=== PATIENT | female | born 1985 | race Caucasian/White ===

== ENCOUNTER 2020-10-03 16:30 | Outpatient (RCR) | payer MEDICAID, SELFPAY | END 2020-10-19 23:59 | LOC: DC 16:30 | PROVIDERS: PCP Internal Medicine; Visit Provider Obstetrics & Gynecology | DX: O24.410 Gestational diabetes mellitus in pregnancy, diet controlled (principal); Z3A.00 Weeks of gestation of pregnancy not specified | CPT/HCPCS: 97802; G0108 ==

== ENCOUNTER 2020-10-14 10:05 | Outpatient (CLI) | payer MEDICAID, SELFPAY ==
[2020-10-14] VITALS (9 sets, daily range): BP systolic 140–182; BP diastolic 72–96; PULSE 70–90; TEMP 36.1–37; O2SAT 100; BMI 54.2
[2020-10-14] MEDS: 0.9% Saline Lock 10 ML Syringe IV (10:45)
[2020-10-14 11:08] LABS: Hematocrit 34.4 % (37-47); Hemoglobin 11.2 g/dL (12.0-15.0); Mean Corp Hgb Conc 32.6 g/dL (32-36); Mean Corpuscular Hgb 27.4 pg (27.0-32.0); Mean Corpuscular Volume 84.1 fL (81-99); Mean Platelet Vol. 13.4 fl (6.2-12.0); Platelet Count 258 K/mm3 (150-450); RBC Distribution Width CV 14.8 % (11.6-14.6); RBC Distribution Width SD 45.3 fl (35.1-43.9); Red Blood Count 4.09 M/mm3 (4.2-5.4); White Blood Count 17.8 K/mm3 (4.4-11.0)
[2020-10-14 11:17] LABS: Prothrombin Time (Protime)PT. 12.9 SECONDS (11.7-14.9)
[2020-10-14 11:18] LABS: Fibrinogen 559 mg/dl (203-444)
[2020-10-14 11:20] LABS: AST(SGOT) 19 U/L (15-37); Alanine Aminotransfer ALT/SGPT 23 U/L (13-56); Creatinine, Serum 0.53 mg/dL (0.55-1.02); EST Glomerular Filtration Rate 139 mL/min (>60); Est Glom Filt Rate - Afr Amer 168 mL/min (>60); Estimated Creatinine Clearance 112.86 ml/min; Uric Acid 4.4 mg/dL (2.6-6.0)
[2020-10-14 11:28] LABS: Amphetamine Urine VISTA POSITIVE (<1000 ng/mL); Barbiturate Urine VISTA NEGATIVE (< 200 ng/mL); Benzodiazepine Urine VISTA NEGATIVE (< 200 ng/mL); Cocaine Urine VISTA NEGATIVE (< 300 ng/mL); Ecstacy Urine VISTA NEGATIVE (< 500 ng/mL); Methadone Urine VISTA NEGATIVE (< 300 ng/mL); PCP Urine VISTA NEGATIVE (< 25 ng/mL); THC Urine VISTA NEGATIVE (< 50 ng/mL); Vista UDS pH Range 6
[2020-10-14 11:29] LABS: Protein, Urine (Random) 59.4 mg/dL (<11.9); Protein:Creat Ratio 339 mg/g CRE (0-200)
[2020-10-14 11:35] LABS: Mucous, Urine 0 SEEN /hpf (<or=2+)
[2020-10-14 11:36] LABS: Bedside Glucose 75 mg/dL (70-110)
[2020-10-14 11:37] LABS: Color, Urine Yellow (Yellow); Glucose, Dipstick Normal (Normal); Ketone-Dipstick Negative (Negative); Leukocyte Esterase-Dipstick 25 /ul (Negative); Nitrite-Dipstick Negative (Negative); Occult Blood-Urine 250 /ul (Negative); Protein-Dipstick 30 mg/dl (Negative); Urine Bilirubin Dipstick Negative (Negative); Urine Clarity Sl. Cloudy (Clear); Urine Urobilinogen Normal (Normal)
[2020-10-14 11:43] LABS: Bacteria 2+ /hpf (None Seen); Red Blood Cells-Urine 25-50 SEEN /hpf (0-5); Squamous Epithelial Cells - UA 0-5 SEEN /hpf (5-10); White Blood Cells 0-5 SEEN /hpf (0-5)
[2020-10-14] MEDS: Lactated Ringers 1,000 ML 999 ML IV (11:53)
[2020-10-14] MEDS: Morphine 4 MG/ML Syringe IV (12:08)
[2020-10-14] MEDS: Betamethasone/Betamethasone 30 MG/5 ML Vial 12 MG IM (12:13)
[2020-10-14 12:39] LABS: Syphilis Antibodies Non-reactive
[2020-10-14 15:51] LABS: Bedside Glucose 87 mg/dL (70-110)
--- NOTE | 2020-10-14 19:10 | OB.TRI.NOTE ---
HPI - General HPI Narrative ROBERT JAMISON, 35-year-old 4 para 1-0-1-2 1 at 34-5/7 weeks presents to labor and delivery for evaluation for threatened labor and elevated blood pressure. Patient denied any of gross vaginal bleeding but did have some brown-tinged mucus. She is had good movement. Contractions started this morning and got progressively worse. She was seen in the office today. She had an ultrasound and was evaluated and sent to labor and delivery for further evaluation. She has not been checking her blood sugars regularly. is complicated to date by gestational diabetes, maternal obesity with BMI of 54. She denies any headache, visual disturbances or epigastric pain. Maternal Data Information Final TAMIA: 11/20/20 Gestational age: 34 5/7 PFSH PFS Home Medications NK 10/14/20 [History Last Taken Unknown] Allergy/AdvReac Type Severity Reaction Status Date / Time No Known Allergies Allergy Verified 10/14/20 11:30 Social History Smoking Status: Former smoker ROS Constitutional Constitutional: Denies fatigue, fever(s) or malaise Eyes Eyes: Denies change in vision ENT HEENT: Denies dizziness or headache(s) Cardiovascular Cardiovascular: Denies chest pain, dyspnea or lightheadedness Respiratory/Chest Respiratory/Chest: Denies cough or dyspnea Gastrointestinal Gastrointestinal: Denies change in bowel habits Genitourinary Genitourinary: Denies burning urination or genital lesions Integumentary Integumentary: Denies rash Neurologic Neurologic: Denies confusion, dizziness, headache(s), numbness or weakness Physical Exam Narrative +DTRs, no clonus abd- soft, nontender, gravid, large for gest age, large pannus Const alert and no apparent distress Constitutional Narrative: appears uncomfortable, breathing through contractions Extremity General Extremity: edema bilateral lower extremity Details: mild NST FHR Rate Baby B Baseline: 135 Variability:: Moderate Accelerations:: 15 x 15 Decelerations:: Variable (occasional) NST Reactive:: Yes FHR Category:: Category I (for > 20 min before discharge) Uterine Activity:: q4-7 min Assessment & Plan (1) High risk multigravida in third trimester: (2) 34 weeks gestation of : (3) Previous delivery affecting : (4) Threatened labor, antepartum: PLAN: Patient was observed on labor and delivery for several hours. No active cervical change. Abruption labs were normal. Patient was given betamethasone x1 in case of premature delivery. Patient's pain with the contractions decreased significantly. She desired discharge home. She was deemed clinically stable for this. Return tomorrow for reevaluation and second dose of betamethasone. Return if contractions increase, vaginal bleeding or other concerns. (5) Maternal obesity syndrome in third trimester: (6) BMI 50.0-59.9, adult: (7) Gestational hypertension: COMMENT: New onset gestational hypertension, possible preeclampsia. Urine PC creatinine ratio was elevated however, patient was having a little bit of brown-tinged vaginal discharge which may have affected this. We will follow patient closely. No evidence of preeclampsia with severe features. Will monitor for this on an outpatient basis for now.
[2020-10-22 20:08] LABS: Amphetamine Positive (.); AmphetamineGC/MS Conf 698 ng/mL (Cutoff=500); Methamphetamines Positive (.)
[2020-10-23 12:18] LABS: Amphetamine Ur Confirm Positive (.)
--- NOTE | 2020-12-02 13:51 | CASEMGMT ---
Social Work Labor and Delivery This report writer noted urine confirmation drug screen results are back and positive for both amphetamines and methamphetamines. This write worked with patient during delivery stay and a children services referral was made at that time. Case opened for investigation and Gabby Goodwin is the vault worker. Called Gabby today and left message to call this report writer back. For further details of social work interactions refer to delivery record, [id number]. -SHAILA Corea, BARREL LOADER
== END 2020-10-14 15:55 | disposition home or self-care (01) ==
LOC: WPOUT 10:11 → WP 10:12
PROVIDERS: PCP Internal Medicine; Visit Provider Obstetrics & Gynecology
DX: O47.03 False labor before 37 completed weeks of gestation, third trimester (principal); O34.212 Maternal care for vertical scar from previous cesarean delivery; O13.3 Gestational [pregnancy-induced] hypertension without significant proteinuria, third trimester; O99.213 Obesity complicating pregnancy, third trimester; E66.9 Obesity, unspecified; Z3A.34 34 weeks gestation of pregnancy; Z87.891 Personal history of nicotine dependence
CPT/HCPCS: 36415; 59025; 59050; 80307; 81001; 82565; 82570; 82962; 84156; 84450; 84460; 84550; 85027; 85384; 85610; 85730; 86780; 86850; 86900; 86901; 87086; 99218; J7120; A4216; G0378; J0702

== ENCOUNTER 2020-10-15 18:20 | Inpatient (IN) | payer MEDICAID, SELFPAY ==
[2020-10-14 10:45] VITALS: BMI 54.2
[2020-10-15] VITALS (37 sets, daily range): BP systolic 127–176; BP diastolic 68–93; PULSE 72–105; RESP 16–20; TEMP 36.3–36.9; O2SAT 96–100; BMI 55.7
[2020-10-15] MEDS: 0.9 % NaCl (Sterile) Posiflush 10 mL IV (14:50)
[2020-10-15 15:14] LABS: Absolute Lymphocyte Count 2.89 X10^3/uL (0.83-4.51); Absolute Neutrophil Count 14.5 X10^3/uL (2.0-7.7); Basophil# 0.03 X10^3/uL; Basophil% 0.2 % (0-1); Eosinophil# 0.04 X10^3/uL; Eosinophils% 0.2 % (0-5); Hematocrit 32.2 % (37-47); Hemoglobin 10.3 g/dL (12.0-15.0); Lymphocyte # 2.89 X10^3/ul (0.83-4.51); Lymphocyte % 15.4 % (19-41); Mean Corpuscular Volume 84.5 fL (81-99); Mean Platelet Vol. 13.4 fl (6.2-12.0); Monocyte# 1.02 X10^3/uL; Monocyte% 5.4 % (0-10); NRBC Flagged by Analyzer 0.2 % (0-5); Neutrophil # 14.47 X10^3/uL (2.7-7.7); Neutrophil % 77.3 % (47-70); Platelet Count 280 K/mm3 (150-450); RBC Distribution Width CV 15.1 % (11.6-14.6); RBC Distribution Width SD 46.2 fl (35.1-43.9); Red Blood Count 3.81 M/mm3 (4.2-5.4); White Blood Count 18.7 K/mm3 (4.4-11.0)
[2020-10-15 15:22] LABS: Protein, Urine (Random) 78.3 mg/dL (<11.9); Protein:Creat Ratio 593 mg/g CRE (0-200)
[2020-10-15 15:25] LABS: AST(SGOT) 16 U/L (15-37); Alanine Aminotransfer ALT/SGPT 23 U/L (13-56); Creatinine, Serum 0.55 mg/dL (0.55-1.02); EST Glomerular Filtration Rate 136 mL/min (>60); Est Glom Filt Rate - Afr Amer 164 mL/min (>60); Estimated Creatinine Clearance 108.76 ml/min; Uric Acid 3.9 mg/dL (2.6-6.0)
--- NOTE | 2020-10-15 15:32 | US_ITS ---
STUDY: SECOND AND THIRD TRIMESTER OBSTETRICAL ULTRASOUND - LIMITED REASON FOR EXAM: Female, 35 years old. Vaginal bleeding. LMP: Unknown. PRIOR ULTRASOUND: None. TECHNIQUE: Transabdominal TECHNICAL QUALITY: Adequate. FINDINGS: There is a single intrauterine fetus. The fetus is in a cephalic presentation. There is demonstrated cardiac activity with a heart rate of 141 bpm. There is a normal amniotic fluid volume. The largest amniotic fluid pocket measures 8.69 cm. The amniotic fluid index (NGUYỄN) is 16.2 cm. The placenta is anterior in location and is not low lying. There are Grade 2 placental changes. The cervix is obscured Age by LMP: 34 weeks, 6 days. TAMIA by LMP: 11/20/2020. US/OB Limited (No Biometrics) IMPRESSION: 1. Live single intrauterine in a vertex presentation. 2. heart rate of 141 bpm. 3. NGUYỄN of 16.2 cm. 4. Anterior grade 2 placenta. There is no evidence of abruption. 5. Unable to visualize the cervix. Electronically Signed: Jermaine Mckeon DO at 16:52 EDT Tel [phone], Service support ,
[2020-10-15] MEDS: Mag Hydrox/Al Hydrox/Simeth 30 ML UDC PO (15:38)
[2020-10-15 15:45] LABS: Prothrombin Time (Protime)PT. 12.9 SECONDS (11.7-14.9)
[2020-10-15 15:46] LABS: Fibrinogen 499 mg/dl (203-444)
[2020-10-15] MEDS: Magnesium Sulfate 4gm/100mL 4 GM/100 ML IV.SOLN. IV (18:54)
[2020-10-15] MEDS: Lactated Ringers 1,000 ML 999 ML IV (18:54)
[2020-10-15] MEDS: Acetaminophen 500 MG Tablet 1000 MG PO (19:18)
[2020-10-15] MEDS: Magnesium Sulfate 20 GM/500 ML BAG IV (19:19)
--- NOTE | 2020-10-15 19:42 | PCM.HP.OB ---
HPI - General General Date of Admission: 10/15/20 HPI Narrative ROBERT JAMISON, is a 35 F who presents with vaginal bleeding and elevated BP. Maternal Data Information Final TAMIA: 11/20/20 Gestational age: 34&6 PFSH PFSH Medical History (Updated 10/15/20 @ 20:05 by Sydnie Ventura) Anxiety Depression Gestational diabetes History of pre-term labor Pre-eclampsia Smoker Thyroid goiter Umbilical cord, marginal insertion Home Medications NK 10/14/20 [History Last Taken Unknown] Allergy/AdvReac Type Severity Reaction Status Date / Time No Known Allergies Allergy Verified 10/14/20 11:30 Surgical History (Updated 10/15/20 @ 20:02 by Sydnie Ventura) History of surgery Previous section Social History Smoking Status: Former smoker Vital Signs Vital Signs Vital Signs: 10/15/20 14:36 10/15/20 14:52 10/15/20 15:07 Pulse Rate 88 83 87 Blood Pressure 161/88 H 152/79 H 154/82 H BP Systolic 161 152 154 BP Diastolic 88 79 82 Pulse Ox 10/15/20 15:22 10/15/20 15:46 10/15/20 15:54 Pulse Rate 83 87 93 Blood Pressure 145/69 H 176/81 H 143/78 H BP Systolic 145 176 143 BP Diastolic 69 81 78 Pulse Ox 10/15/20 16:07 10/15/20 16:37 10/15/20 16:52 Pulse Rate 80 72 81 Blood Pressure 151/82 H 141/89 H 146/93 H BP Systolic 151 141 146 BP Diastolic 82 89 93 Pulse Ox 10/15/20 17:07 10/15/20 17:22 10/15/20 17:37 Pulse Rate 86 80 79 Blood Pressure 168/81 H 135/77 H 130/80 H BP Systolic 168 135 130 BP Diastolic 81 77 80 Pulse Ox 10/15/20 17:53 10/15/20 18:52 10/15/20 18:57 Pulse Rate 82 84 81 Blood Pressure 137/81 H BP Systolic 137 BP Diastolic 81 Pulse Ox 98 99 10/15/20 19:02 10/15/20 19:07 10/15/20 19:12 Pulse Rate 89 88 97 Blood Pressure 141/80 H BP Systolic 141 BP Diastolic 80 Pulse Ox 99 98 98 10/15/20 19:17 10/15/20 19:22 10/15/20 19:27 Pulse Rate 91 94 97 Blood Pressure 158/83 H BP Systolic 158 BP Diastolic 83 Pulse Ox 98 99 98 10/15/20 19:39 Pulse Rate 87 Blood Pressure BP Systolic BP Diastolic Pulse Ox 100 Weight Weight: 294 lb 15.656 oz Body Mass Index (BMI) 55.7 Physical Exam Const alert and oriented x3 Chest inspection of chest normal Resp normal respiratory effort GI soft to palpation and non-tender Inspection: gravid external exam normal Labs Labs Labs: Blood Type A POSITIVE Antibody Screen NEGATIVE Hct 32.2 % (37-47) L Hgb 10.3 g/dL (12.0-15.0) L Obstetrics US Syphilis Total Ab Non-reactive See [facility] H&P Assessment & Plan (1) Previous delivery affecting : COMMENT: PLAN: MOD - proceed with repeat section. Patient counseled on R/B/A & informed consent signed. (2) Pre-eclampsia, severe: QUALIFIERS: Trimester: third trimester Qualified Code(s): O14.13 - Severe pre-eclampsia, third trimester PLAN: BP's severe range thus patient with severe preE. Start magnesium sulfate and will proceed with delivery. Plan of care discussed with patient in detail & all questions answered. (3) Request for sterilization: PLAN: Patient wishes to proceed with bilateral salpingectomy. Reviewed R/B/A including risks of regret & failure. Informed consent signed. (4) Vaginal bleeding during : PLAN: Patient with significant vaginal bleeding in office today. Suspect placental abruption.
[2020-10-15] MEDS: Sodium Citrate/Citric Acid 30 ML UDC PO (19:54)
[2020-10-15 19:56] LABS: Bedside Glucose 109 mg/dL (70-110)
--- NOTE | 2020-10-15 20:02 | NURSING ---
Anesthesia managing magnesium in OR, see OR vital signs and charting from 2001 until 2149.
--- NOTE | 2020-10-15 20:30 | FALS_PTH ---
PATIENT: ROBERT JAMISON LOC: [facility] U#:[id number] AGE/SX: 35/F ROOM: WP012 RE10/15/[address]: Dr. Jake Funes MD : 1985 BED: 1 DIS: 10/21/2020 SPEC #: [id number] RECD: 10/15/20 23:09 STATUS: ELIZABETH REMarisa #: [id number] MELITON: 10/15/20 20:[address]: Jake Funes DEPT: SURGICAL PATHOLOGY RECD BY: Steff Sequeira ENTERED: 10/16/20 08:42 SP TYPE: FALL TUBES OTHR DR: Dr. Huyen Black DO Tissues: Fallopian tube Procedures: Surgery Specimen Level II HEADER OPERATION: Tubal ligation PRE-OP DIAGNOSIS: Sterilization TISSUE SUBMITTED: Fallopian tubes, right tube is tagged MICROSCOPIC DIAGNOSIS Right fallopian tube, salpingectomy: Complete cross-section of fallopian tube with no pathologic change. Left fallopian tube, salpingectomy: Complete cross-section of fallopian tube with no pathologic change. AM:felipa 10/17/2020 MICROSCOPIC DESCRIPTION Slides are reviewed. GROSS DESCRIPTION Received in fixative is one container labeled with the patient's name and designated bilateral fallopian tubes, right tube tagged. The specimen consists of bilateral fallopian tubes including fimbrial ends. The right fallopian tube measures 8.5 cm in length and up to 0.8 cm in diameter and the left fallopian tube measures 9 cm in length and 0.8 cm in diameter. Sections of the right fallopian tube reveal focal congested and hemorrhagic surfaces close to fimbrial end. Election Watcher sections are submitted in two as follows: 1 ? right fallopian tube, 2 ? left fallopian tube. / SJ:felipa 10/16/20 TC:4 CPT: 22647 x2
--- NOTE | 2020-10-15 21:46 | EX.PCM.OBRPT ---
Maternal Data Information Final TAMIA: 11/20/20 Details Operative Information Date of Procedure: 10/15/20 Pre-Operative Diagnosis: (1) Severe preeclampsia (2) Suspected placenta abruption (3) Prior section (4) Sterilization request Post-Operative Diagnosis: Same Indications for : Repeat Elective and Suspected Abruptio Placenta Indications Narrative: The patient was taken to the operating room where spinal anesthesia was placed & found to be adequate. She was prepped and draped in the dorsal supine position with a leftward tilt. A Pfannenstiel skin incision was made approximately 2 cm above the symphysis pubis and carried through to the underlying fascia with the scalpel. The fascia was incised incised in the midline and extended laterally with the Everett scissors. The rectus muscles were in the midline and the peritoneum was entered carefully and bluntly. Adhesions involving the bladder peritoneum & uterus were gently taken down. The peritoneal incision was stretched and the bladder blade was inserted. Vesicouterine peritoneum was tented up, incised & then bladder flap created gently. The uterine incision was made in a low transverse fashion with the scalpel and extended superiorly and inferiorly with blunt dissection. The 's head was brought to the incision in the flexed position and delivered without difficulty. The head was gently guided to allow delivery of the anterior and posterior shoulders. The body then delivered with fundal pressure in the standard fashion. The 3VC cord was clamped and cut in delayed fashion. The infant was handed off to the waiting tower climber. The placenta spontaneously delivered. The uterus was exteriorized and cleared of clots and debris. The uterine incision was closed with (2) #1 Vicryl suture in a running locked fashion from each side. Monocryl suture was used in an imbricating fashion. The incision was examined and was found to be hemostatic. Attention was turned to the fallopian tubes. Adhesions were gently taken down using the bovie cautery so the right fallopian tube could be accessed. The right fallopian tube was grasped, cauterized and cut using the Ligasure. Excellent hemostasis was confirmed. The left fallopian tubes was grasped, cauterized and cut using the Ligasure. Excellent hemostasis was confirmed. The uterus was gently returned to the abdominal cavity. After irrigating Eamon was placed over the uterine incision as some areas were denuded (but hemostatic). The peritoneum was reapproximated superiorly for 3cm then aborted because of some adhesions. The rectus muscle was examined and any bleeding was Bovie cauterized. The fascia was closed with PDS suture in a running standard fashion (using a fish retractor). The subcutaneous tissue was examining and any bleeding was Bovie cauterized. The subcutaneous tissue was reapproximated with interrupted sutures. The skin was closed in a subcuticular fashion by the MACHINE STRAP BUCKLER while I was present in the labor & delivery unit. The remainder of the procedure was performed by me with assistance. All sponge, lap, and needle counts were correct. The patient was taken to her room for recovery in a stable condition. Classification: YOVANY Procedure Type: low transverse driveway attendant #1: Papo Vilchis Type of Anesthesia: Spinal Antibiotic Given: Ancef 3 grams IV x1 Drain: Cummings to straight drain Estimated Blood Loss: 800ml Fluids Replaced: 1000ml Procedure Start Time: 20:23 Procedure Stop Time: 21:43 Findings Description of Procedure: Normal maternal uterus and adnexa; some adhesions involving the adnexa & uterus, also adhesions involving the uterus & bladder peritoneum Presentation: Positive for Vertex Amniotic Membrane Rupture Type: Artificial Amniotic Fluid Description: Bloody Placental Delivery Description: Spontaneous Placenta Disposition: [facility] Cord Vessel Description: 3 Vessels Cord Entanglement: None Cord Gases: ABG and VBG Infant A Gender: Male (Joe, weight = 2400g) (1 minute): 8 (5 minute): 8 Delayed Cord Clamping: Yes Complications Complications: None
--- NOTE | 2020-10-15 22:00 | NURSING ---
See PACU scoring-WP for vital signs.
[2020-10-15] MEDS: Ketorolac 30 MG/ML Syringe IV (22:19)
[2020-10-15] MEDS: Oxytocin 30 units/NS 500 ml 30 UNITS/500 ML IV.SOLN 167 UNITS IV (22:20)
[2020-10-15] MEDS: 0.9% Saline Lock 10 ML Syringe IV (22:20)
--- NOTE | 2020-10-15 23:00 | NURSING ---
See PCU scoring-WP for VS.
[2020-10-15 23:08] LABS: Pathology Specimen OB SEE PATHOLOGY REPORT
--- NOTE | 2020-10-15 23:50 | NURSING ---
Discussed plan for feeding with pt. Educated on pumping to stimulate milk production if pt wishes to breastfeed. Pt states I don't even want to sit up right now and denies desire to pump. This RN instructed pt to let staff know if she wishes to start pumping. Pt verbalizes understanding.
[2020-10-16] VITALS (41 sets, daily range): BP systolic 103–155; BP diastolic 55–73; PULSE 77–107; RESP 16–20; TEMP 36.4–37.3; O2SAT 95–100
--- NOTE | 2020-10-16 | NURSING ---
Seizure pads placed on pt bed.
[2020-10-16 00:01] LABS: Bedside Glucose 135 mg/dL (70-110)
[2020-10-16] MEDS: HYDROmorphone 1 MG/ML Syringe IV ×2 (00:01→13:01)
[2020-10-16] MEDS: 0.9% Saline Lock 10 ML Syringe IV ×2 (00:01→04:24)
[2020-10-16] MEDS: Acetaminophen 500 MG Tablet 1000 MG PO ×4 (01:38→18:56)
[2020-10-16] MEDS: Lactated Ringers 1,000 ML 50 ML IV (01:39)
[2020-10-16] MEDS: Ketorolac 30 MG/ML Syringe IV ×3 (04:24→16:23)
[2020-10-16] MEDS: Magnesium Sulfate 20 GM/500 ML BAG IV ×2 (05:22→14:37)
[2020-10-16 05:40] LABS: Hematocrit 30.1 % (37-47); Hemoglobin 9.5 g/dL (12.0-15.0); Mean Corp Hgb Conc 31.6 g/dL (32-36); Mean Corpuscular Hgb 27.3 pg (27.0-32.0); Mean Corpuscular Volume 86.5 fL (81-99); Mean Platelet Vol. 13.5 fl (6.2-12.0); Platelet Count 298 K/mm3 (150-450); RBC Distribution Width CV 15.6 % (11.6-14.6); RBC Distribution Width SD 48.7 fl (35.1-43.9); Red Blood Count 3.48 M/mm3 (4.2-5.4); White Blood Count 26.2 K/mm3 (4.4-11.0)
[2020-10-16 06:30] LABS: Bedside Glucose 105 mg/dL (70-110)
--- NOTE | 2020-10-16 08:20 | NURSING ---
Dr. Francisco reviewed vital signs and lab work. Continue current plan of care. Monitor for signs of infection due to increased WBC count .
--- NOTE | 2020-10-16 08:29 | NURSING ---
Per Dr. Francisco, turn down Lactated Ringer's so that patient can take more fluid PO. LR now running at 20 mL/hr and patient notified that she can now drink 80 mL/hour of fluid. Informed patient that this RN will help measure out 80 mL/hour for patient to drink. Patient verbalizes understanding .
[2020-10-16] MEDS: Enoxaparin 40 MG/0.4 ML Syringe SC ×2 (08:31→22:57)
--- NOTE | 2020-10-16 12:40 | NURSING ---
Dr. Francisco notified of patient's most recent blood pressures and that patient reports a severe headache, along with feeling very drowsy. Patient is arousable. Patient is alert once she wakes up from sleep. Dr. Francisco also notified that patient's reflexes went from normal to diminished. Plan is to obtain a Magnesium level now and a CBC and CMP in the morning. Dr. Francisco also aware of patient's output.
[2020-10-16] MEDS: Senna/Docusate Sodium 1 Tablet PO (13:07)
[2020-10-16 13:21] LABS: Magnesium 5.3 mg/dL (1.6-2.6)
--- NOTE | 2020-10-16 13:40 | NURSING ---
Call placed to [facility] Nurse Rajni to relay message to Dr. Francisco that magnesium level is 5.3
--- NOTE | 2020-10-16 14:28 | PN.OBGYN_ITS ---
Subjective Subjective Pt doing well. No vision changes, upper abd pain. Pain controlled. Has a headache. Tolerating PO. Gallardo in place. No N/V. Objective Data Objective Data Vital Signs: Vital Signs Temp Pulse Resp BP Pulse Ox 98.4 F 102 H 16 120/60 96 10/16/20 13:30 10/16/20 13:34 10/16/20 13:30 10/16/20 13:34 10/16/20 13:30 Oxygen Delivery Method Room Air Weight: 294 lb 15.656 oz Body Mass Index (BMI) 55.7 Intake & Output: Intake and Output for Last 24 Hours 10/14/20 10/15/20 10/16/20 23:59 23:59 23:59 Intake Total 1265 / 1265 1940.83 / 1940.83 Output Total 350 / 450 930 / 930 Balance 915 / 815 1010.83 / 1010.83 Lab / Micro Data Result Diagrams: 10/16/20 05:30 10/15/20 14:50 Labs: Laboratory Results - last 24 hr 10/15/20 14:50: U Random Total Protein 78.3 H, Urine Creatinine 132.00, Protein/Creatinin Ratio 593 H 10/15/20 14:50: Creatinine 0.55, Estim Creat Clear Calc 108.76, Est GFR (MDRD) Af Amer 164, Est GFR (MDRD) Non-Af 136, Uric Acid 3.9, AST 16, ALT 23 10/15/20 14:50: WBC 18.7 H, RBC 3.81 L, Hgb 10.3 L, Hct 32.2 L, MCV 84.5, MCH 27.0, MCHC 32.0, RDW Std Deviation 46.2 H, RDW Coeff of Belkis 15.1 H, Plt Count 280, MPV 13.4 H, Immature Gran % (Auto) 1.500 H, Neut % (Auto) 77.3 H, Lymph % (Auto) 15.4 L, Pennington % (Auto) 5.4, Eos % (Auto) 0.2, Baso % (Auto) 0.2, Absolute Neuts (auto) 14.5 H, Absolute Lymphs (auto) 2.89, Nucleated RBC % 0.2 10/15/20 14:50: PT 12.9, INR 1.0, APTT 25.0, Fibrinogen 499 H 10/15/20 19:40: POC Glucose 109 10/15/20 23:37: POC Glucose 135 H 10/16/20 05:30: WBC 26.2 H, RBC 3.48 L, Hgb 9.5 L, Hct 30.1 L, MCV 86.5, MCH 27.3, MCHC 31.6 L, RDW Std Deviation 48.7 H, RDW Coeff of Belkis 15.6 H, Plt Count 298, MPV 13.5 H 10/16/20 06:15: POC Glucose 105 10/16/20 12:55: Magnesium 5.3 H* Micro: Microbiology 10/15/20 18:20 Mucosa - Nose SARS-CoV-2 Antigen (Rapid) - Final Radiography Diagnostic Testing: Radiology Impression Obstetrics Ultrasound 10/15/20 15:32 IMPRESSION: 1. Live single intrauterine in a vertex presentation. 2. heart rate of 141 bpm. 3. NGUYỄN of 16.2 cm. 4. Anterior grade 2 placenta. There is no evidence of abruption. 5. Unable to visualize the cervix. Electronically Signed: Jermaine Mckeon DO at 16:52 EDT Tel [phone], Service support , Assessment & Plan (1) Pre-eclampsia, severe: QUALIFIERS: Trimester: third trimester Qualified Code(s): O14.13 - Severe pre-eclampsia, third trimester PLAN: BP's are WNL. Has a LANGSTON this morning. Labs reviewed. UOP adequate. Cont mag gtt for 24 hrs . Keep gallardo in place until mag gtt off. Repeat pre e labs in AM. Pain controlled. Cont reg diet. (2) BMI 50.0-59.9, adult: (3) S/P section:
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
--- NOTE | 2020-10-16 17:22 | NURSING ---
Patient has requested that nursing staff give report on the patient's history outside of the room as her significant other does not know some of her social history that she would like to keep private for now.
--- NOTE | 2020-10-16 17:49 | NURSING ---
Per Dr. Francisco, stop Magnesium at 2030 tonight. Once Magnesium is discontinued, patient can maintain regular diet and come off of fluid restrictions. No further blood pressure medications ordered. Call provider with any blood pressure issues overnight.
[2020-10-16] MEDS: oxyCODONE 5 MG Tablet PO (20:02)
[2020-10-16] MEDS: Ibuprofen 600 MG Tablet PO (22:58)
[2020-10-17] VITALS (10 sets, daily range): BP systolic 132–146; BP diastolic 63–71; PULSE 82–100; RESP 18–20; TEMP 36.7–36.8; O2SAT 98–99
[2020-10-17] MEDS: Acetaminophen 500 MG Tablet 1000 MG PO ×4 (01:44→21:40)
[2020-10-17] MEDS: oxyCODONE 5 MG Tablet PO ×4 (03:48→21:55)
[2020-10-17] MEDS: Ibuprofen 600 MG Tablet PO ×3 (05:43→18:43)
[2020-10-17 06:14] LABS: Absolute Lymphocyte Count 4.36 X10^3/uL (0.83-4.51); Basophil# 0.06 X10^3/uL; Basophil% 0.3 % (0-1); Eosinophil# 0.13 X10^3/uL; Eosinophils% 0.7 % (0-5); Hematocrit 26.9 % (37-47); Hemoglobin 8.1 g/dL (12.0-15.0); Lymphocyte # 4.36 X10^3/ul (0.83-4.51); Lymphocyte % 25.1 % (19-41); Mean Corp Hgb Conc 30.1 g/dL (32-36); Mean Corpuscular Hgb 26.6 pg (27.0-32.0); Mean Corpuscular Volume 88.2 fL (81-99); Monocyte# 1.38 X10^3/uL; Monocyte% 7.9 % (0-10); NRBC Flagged by Analyzer 0.2 % (0-5); Neutrophil # 10.97 X10^3/uL (2.7-7.7); Neutrophil % 63.3 % (47-70); Platelet Count 288 K/mm3 (150-450); RBC Distribution Width CV 15.9 % (11.6-14.6); RBC Distribution Width SD 50.4 fl (35.1-43.9); Red Blood Count 3.05 M/mm3 (4.2-5.4); White Blood Count 17.4 K/mm3 (4.4-11.0)
[2020-10-17 06:49] LABS: ALB/GLOB Ratio 0.5 RATIO (0.9-2.4); AST(SGOT) 18 U/L (15-37); Alanine Aminotransfer ALT/SGPT 17 U/L (13-56); Albumin, Serum 1.7 g/dL (3.2-5.0); Alkaline Phosphatase 111 U/L (45-117); Anion Gap 5 (5-15); BUN 18 mg/dL (7-18); BUN/Creat Ratio 22.6 RATIO (10-20); Calcium,Total 7.5 mg/dL (8.5-10.1); Chloride 110 mmol/L (98-107); EST Glomerular Filtration Rate 88 mL/min (>60); Est Glom Filt Rate - Afr Amer 106 mL/min (>60); Estimated Creatinine Clearance 74.77 ml/min; Globulin 3.6 g/dL (2.2-4.2); Glucose 142 mg/dL (74-106); Potassium 3.9 mmol/L (3.5-5.1); Protein, Total 5.3 g/dL (6.4-8.2); Sodium Level 140 mmol/L (136-145)
[2020-10-17] MEDS: Senna/Docusate Sodium 1 Tablet PO (07:47)
--- NOTE | 2020-10-17 08:23 | PCM.PN.OB ---
Subjective Subjective Pain well, average lochia. Denies headache or visual disturbances. Feels bloated. No nausea. Tolerating regular diet. Ambulating without difficulty. Denies lightheadedness, shortness of breath or chest pain. Objective Data Objective Data Vital Signs: Vital Signs Temp Pulse Resp BP Pulse Ox 98.3 F 82 18 132/66 H 99 10/17/20 03:50 10/17/20 07:51 10/17/20 03:50 10/17/20 07:51 10/17/20 03:53 Oxygen Delivery Method Room Air Weight: 133.8 kg Body Mass Index (BMI) 55.7 Intake & Output: Intake and Output for Last 24 Hours 10/15/20 10/16/20 10/17/20 23:59 23:59 23:59 Intake Total 1265 / 1265 3307.33 / 3307.33 Output Total 350 / 450 1580 / 1580 200 / 200 Balance 915 / 815 1727.33 / 1727.33 -200 / -200 Lab / Micro Data Result Diagrams: 10/17/20 06:05 10/17/20 06:05 Labs: Laboratory Results - last 24 hr 10/16/20 12:55: Magnesium 5.3 H* 10/17/20 06:05: WBC 17.4 H, RBC 3.05 L, Hgb 8.1 L, Hct 26.9 L, MCV 88.2, MCH 26.6 L, MCHC 30.1 L, RDW Std Deviation 50.4 H, RDW Coeff of Belkis 15.9 H, Plt Count 288, MPV 13.0 H, Immature Gran % (Auto) 2.700 H, Neut % (Auto) 63.3, Lymph % (Auto) 25.1, [place] % (Auto) 7.9, Eos % (Auto) 0.7, Baso % (Auto) 0.3, Absolute Neuts (auto) 11.0 H, Absolute Lymphs (auto) 4.36, Nucleated RBC % 0.2 10/17/20 06:05: Sodium 140, Potassium 3.9, Chloride 110 H, Carbon Dioxide 25.0, Anion Gap 5, BUN 18, Creatinine 0.80, Estim Creat Clear Calc 74.77, Est GFR (MDRD) Af Amer 106, Est GFR (MDRD) Non-Af 88, BUN/Creatinine Ratio 22.6 H, Glucose 142 H, Calcium 7.5 L, Total Bilirubin 0.10 L, AST 18, ALT 17, Alkaline Phosphatase 111, Total Protein 5.3 L, Albumin 1.7 L, Globulin 3.6, Albumin/Globulin Ratio 0.5 L Micro: Microbiology 10/15/20 18:20 Mucosa - Nose SARS-CoV-2 Antigen (Rapid) - Final Physical Exam Narrative 1+ DTRs, no clonus, 3+ pedal and lower extremity edema. Const alert General Appearance: cooperative GI GI Narrative: soft, moderate distention, fundus firm, moderately tender. Abdominal bandage clean dry and intact. No rebound or guarding. Pannus is large. Assessment & Plan (1) S/P section: PLAN: Doing well from a postop status. is in the special care nursery. Patient is working on pumping breastmilk and trying to latch baby for breast-feeding. (2) Pre-eclampsia, severe: QUALIFIERS: Trimester: third trimester Qualified Code(s): O14.13 - Severe pre-eclampsia, third trimester PLAN: Is are stable. Not on any maintenance medications at this time. Continue monitor blood pressures. (3) Postoperative anemia due to acute blood loss: PLAN: Calculated EBL is 1300. This is consistent with postoperative, hemorrhage. Will give 1 dose of IV iron. Patient's anemia is asymptomatic at this time. (4) hemorrhage:
[2020-10-17] MEDS: DiphenhydrAMINE 50 MG/ML Syringe 25 MG IV (09:56)
[2020-10-17] MEDS: 0.9% Saline Lock 10 ML Syringe IV ×2 (09:56→10:56)
[2020-10-17] MEDS: Enoxaparin 40 MG/0.4 ML Syringe SC ×2 (09:56→21:41)
--- NOTE | 2020-10-17 10:53 | CASEMGMT ---
Social Work Labor and Delivery Unit Call to [facility]. Spoke with Gabby in the intake department, , extension [phone]. Referral due to substance exposed in utero. Brief maternal and histories provided, including additional risk factors/concerns of maternal mental health not currently treated, limited support, process of divorce, premature delivery and baby now in SCN. Asked Gabby to call this typewriter ribbon winder back as to whether referral to be screened in, as this typewriter ribbon winder wants to be able to update MOB on children services intentions. This typewriter ribbon winder would like to be able to offer MOB additional opportunity to speak to the father of baby about this matter, before children services would arrive to meet with MOB. Social work following. -SHAILA Corea, DIRECTOR OF ANNUAL GIVING
--- NOTE | 2020-10-17 17:00 | CASEMGMT ---
Social Work Labor and Delivery Unit Received phone call from Gabby that [facility]. [facility] [place] [place] will be screening in referral for investigation, and Gabby plans to come to the hospital on 10/18/2020 to meet with the mother of baby (MOB). Met with the MOB and educated to early Headstart and Help Me Grow. MOB verbally agrees to Help Me Grow referral. Educated MOB to response from [facility], in case MOB wants to talk to the father of baby. MOB became tearful and discussed concern about upcoming divorce and custody issues. MOB alluded that she and her soon-to-be ex- may have had some issues in the past when substances, as evidenced to MOB making a statement that he gave it to me. MOB reported that both sets of attorneys are aware of issues and the dates of things that happened. Emotional support provided to the MOB. Offered to help with the MOB with conversation with the current FOB. MOB initially declined, and then later called this scientific technical writer on the phone asking for help. This scientific technical writer presented to the special care nursery where the MOB and FOB were located. By the time social studies teacher was able to present to the baby's bedside, the MOB had already disclosed the use of Adipex during to the FOB. This scientific technical writer sat down with the parents and processed concerns; answered questions as able. Emotional support provided to both parents. MOB continues to be in agreement with returning to counseling. FOB remained calm though affect was constricted and was able to verbalize concern about whether he is going to have to watch for red flags with the MOB, pertaining to MOB judgment and decision-making. MOB expressing remorse, and expressing understanding others' concerns, as well as wanting to make healthy choices in the future. Plan: Social work will continue to follow. [facility] will be making a visit on 10/18/2020. Will be making a help me grow referral. Will be making MOB and mental health follow-up. -SHAILA Corea, ZOO DIRECTOR *Information generated by the [employer] system.*
[2020-10-18] VITALS (7 sets, daily range): BP systolic 121–145; BP diastolic 59–71; PULSE 73–98; RESP 16–20; TEMP 36.1–36.6; O2SAT 98–99
[2020-10-18] MEDS: Ibuprofen 600 MG Tablet PO ×4 (00:23→17:56)
[2020-10-18] MEDS: oxyCODONE 5 MG Tablet PO ×3 (02:27→13:55)
[2020-10-18] MEDS: Acetaminophen 500 MG Tablet 1000 MG PO ×4 (03:11→22:33)
--- NOTE | 2020-10-18 07:39 | PCM.PN.OB ---
Subjective Subjective Patient asleep upon entering room. She reports she has a dull headache this morning. No vision changes or upper abd pain. Lochia normal but she does say she passed a few clots. Pain well controlled. Dede reg diet without N/V. Voiding and ambulating without difficulty. Objective Data Objective Data Vital Signs: Vital Signs Temp Pulse Resp BP Pulse Ox 97.7 F L 78 20 H 138/66 H 98 10/18/20 02:21 10/18/20 02:21 10/18/20 02:21 10/18/20 02:21 10/18/20 02:21 Oxygen Delivery Method Room Air Weight: 294 lb 15.656 oz Body Mass Index (BMI) 55.7 Intake & Output: Intake and Output for Last 24 Hours 10/16/20 10/17/20 10/18/20 23:59 23:59 23:59 Intake Total 3307.33 / 3307.33 110.25 / 110.25 Output Total 1580 / 1580 200 / 200 Balance 1727.33 / 1727.33 -89.75 / -89.75 Lab / Micro Data Result Diagrams: 10/17/20 06:05 10/17/20 06:05 Micro: Microbiology 10/15/20 18:20 Mucosa - Nose SARS-CoV-2 Antigen (Rapid) - Final Physical Exam Const alert HEENT normocephalic GI soft to palpation, non-tender and non-distended Extremity Extremity Narrative: Patellar reflexes 2+ Assessment & Plan (1) hemorrhage: PLAN: S/p section for pre eclampsia. BP WNL but starting to trend up. S/p 24 hrs of mag gtt. Will repeat labs this morning. Likely discharge tomorrow. (2) S/P section: (3) Pre-eclampsia, severe: QUALIFIERS: Trimester: third trimester Qualified Code(s): O14.13 - Severe pre-eclampsia, third trimester
[2020-10-18] MEDS: 0.9% Saline Lock 10 ML Syringe IV (08:14)
[2020-10-18] MEDS: Enoxaparin 40 MG/0.4 ML Syringe SC ×2 (09:53→22:33)
[2020-10-18] MEDS: Senna/Docusate Sodium 1 Tablet PO (09:53)
[2020-10-18 10:18] LABS: Hematocrit 27.1 % (37-47); Hemoglobin 8.3 g/dL (12.0-15.0); Mean Corp Hgb Conc 30.6 g/dL (32-36); Mean Corpuscular Volume 88.3 fL (81-99); Mean Platelet Vol. 12.4 fl (6.2-12.0); Platelet Count 307 K/mm3 (150-450); RBC Distribution Width CV 16.1 % (11.6-14.6); RBC Distribution Width SD 51.4 fl (35.1-43.9); Red Blood Count 3.07 M/mm3 (4.2-5.4); White Blood Count 23.3 K/mm3 (4.4-11.0)
[2020-10-18 10:59] LABS: ALB/GLOB Ratio 0.5 RATIO (0.9-2.4); AST(SGOT) 39 U/L (15-37); Alanine Aminotransfer ALT/SGPT 29 U/L (13-56); Alkaline Phosphatase 111 U/L (45-117); Anion Gap 6 (5-15); BUN 14 mg/dL (7-18); BUN/Creat Ratio 29.4 RATIO (10-20); Calcium,Total 8.4 mg/dL (8.5-10.1); Chloride 108 mmol/L (98-107); Creatinine, Serum 0.48 mg/dL (0.55-1.02); EST Glomerular Filtration Rate 159 mL/min (>60); Est Glom Filt Rate - Afr Amer 192 mL/min (>60); Estimated Creatinine Clearance 124.62 ml/min; Globulin 4.1 g/dL (2.2-4.2); Glucose 70 mg/dL (74-106); Potassium 4.1 mmol/L (3.5-5.1); Protein, Total 6.1 g/dL (6.4-8.2); Sodium Level 140 mmol/L (136-145)
--- NOTE | 2020-10-18 15:33 | CASEMGMT ---
Social Work Labor and Delivery Unit Released from [facility] children services presented to the unit today and met with the mother of baby (MOB). Spoke with Gabby afterwards and Gabby is aware of potential for discharge over the weekend. Gabby will be following this family in the community. This auto service writer called [facility] counseling [place] and obtained an appointment with psychologist Elaine Cerna for 12/03/2020 at 11 AM. This auto service writer asked for MOB to be placed on a cancellation list. If MOB needs to be seen prior to assigned appointment, and will be can call and speak to a crisis counselor. Spoke with the MOB this date. MOB reports to be feeling much calmer after speaking with children services, reporting perception that meeting with children services went well. Supportive listening offered to the MOB. MOB affect less constricted. No tears during this conversation. Educated MOB to her follow-up with Elaine Cerna. MOB is agreeable, and expresses understanding that can call in for crisis appointment if needed. MOB continues to be agreeable to a help me grow referral. Plan: MOB will discharge home when medically stable. Social work will continue to follow family via the special care nursery, but the baby will also be able to discharge home with the MOB. [facility] children services will follow in the community. Social work at the hospital will continue to monitor for meconium drug screen results, and completion of helping grow referral. -SHAILA Corea, CAFETERIA HELPER *Information generated via the [employer] system.*
[2020-10-19] VITALS (17 sets, daily range): BP systolic 117–163; BP diastolic 55–80; PULSE 74–96; RESP 16–18; TEMP 36.3–36.8; O2SAT 100
[2020-10-19] MEDS: Ibuprofen 600 MG Tablet PO ×4 (00:03→17:55)
[2020-10-19] MEDS: oxyCODONE 5 MG Tablet PO ×4 (02:56→23:45)
[2020-10-19] MEDS: Acetaminophen 500 MG Tablet 1000 MG PO ×4 (02:56→22:03)
[2020-10-19 06:13] LABS: Hematocrit 36.4 % (37-47); Mean Corp Hgb Conc 27.5 g/dL (32-36); Mean Corpuscular Hgb 27.2 pg (27.0-32.0); Mean Corpuscular Volume 98.9 fL (81-99); Mean Platelet Vol. 12.3 fl (6.2-12.0); Platelet Count 252 K/mm3 (150-450); RBC Distribution Width CV 16.3 % (11.6-14.6); RBC Distribution Width SD 58.6 fl (35.1-43.9); Red Blood Count 3.68 M/mm3 (4.2-5.4); White Blood Count 16.7 K/mm3 (4.4-11.0)
[2020-10-19 06:40] LABS: ALB/GLOB Ratio 0.5 RATIO (0.9-2.4); AST(SGOT) 138 U/L (15-37); Alanine Aminotransfer ALT/SGPT 108 U/L (13-56); Albumin, Serum 1.9 g/dL (3.2-5.0); Alkaline Phosphatase 107 U/L (45-117); Anion Gap 7 (5-15); BUN 14 mg/dL (7-18); BUN/Creat Ratio 28.2 RATIO (10-20); Calcium,Total 8.1 mg/dL (8.5-10.1); Chloride 106 mmol/L (98-107); EST Glomerular Filtration Rate 151 mL/min (>60); Est Glom Filt Rate - Afr Amer 183 mL/min (>60); Estimated Creatinine Clearance 119.63 ml/min; Globulin 3.8 g/dL (2.2-4.2); Glucose 109 mg/dL (74-106); Potassium 3.9 mmol/L (3.5-5.1); Protein, Total 5.7 g/dL (6.4-8.2); Sodium Level 139 mmol/L (136-145)
[2020-10-19] MEDS: Senna/Docusate Sodium 1 Tablet PO (09:26)
[2020-10-19] MEDS: Enoxaparin 40 MG/0.4 ML Syringe SC ×2 (09:26→22:01)
[2020-10-19] MEDS: Labetalol 100 MG Tablet PO ×3 (09:29→22:01)
--- NOTE | 2020-10-19 09:31 | PCM.PN.OB ---
Subjective Subjective Patient doing well. Has a 5/10 headache today, that does resolve with medication. No vision changes or RUQ pain. Pain well controlled. Tolerating reg diet without N/V. Ambulating and voiding without difficulty. Lochia normal. Objective Data Objective Data Vital Signs: Vital Signs Temp Pulse Resp BP Pulse Ox 98.2 F 88 16 143/77 H 100 10/19/20 08:36 10/19/20 08:38 10/19/20 08:36 10/19/20 08:38 10/19/20 08:38 Oxygen Delivery Method Room Air Weight: 294 lb 15.656 oz Body Mass Index (BMI) 55.7 Intake & Output: Intake and Output for Last 24 Hours 10/17/20 10/18/20 10/19/20 23:59 23:59 23:59 Intake Total 110.25 / 110.25 Output Total 200 / 200 Balance -89.75 / -89.75 Lab / Micro Data Result Diagrams: 10/19/20 05:50 10/19/20 05:50 Labs: Laboratory Results - last 24 hr 10/18/20 10:00: WBC 23.3 H, RBC 3.07 L, Hgb 8.3 L, Hct 27.1 L, MCV 88.3, MCH 27.0, MCHC 30.6 L, RDW Std Deviation 51.4 H, RDW Coeff of Belkis 16.1 H, Plt Count 307, MPV 12.4 H 10/18/20 10:00: Sodium 140, Potassium 4.1, Chloride 108 H, Carbon Dioxide 26.0, Anion Gap 6, BUN 14, Creatinine 0.48 L, Estim Creat Clear Calc 124.62, Est GFR (MDRD) Af Amer 192, Est GFR (MDRD) Non-Af 159, BUN/Creatinine Ratio 29.4 H, Glucose 70 L, Calcium 8.4 L, Total Bilirubin 0.10 L, AST 39 H, ALT 29, Alkaline Phosphatase 111, Total Protein 6.1 L, Albumin 2.0 L, Globulin 4.1, Albumin/Globulin Ratio 0.5 L 10/19/20 05:50: WBC 16.7 H, RBC 3.68 L, Hgb 10.0 L, Hct 36.4 L, MCV 98.9 D, MCH 27.2, MCHC 27.5 L D, RDW Std Deviation 58.6 H, RDW Coeff of Belkis 16.3 H, Plt Count 252, MPV 12.3 H 10/19/20 05:50: Sodium 139, Potassium 3.9, Chloride 106, Carbon Dioxide 26.0, Anion Gap 7, BUN 14, Creatinine 0.50 L, Estim Creat Clear Calc 119.63, Est GFR (MDRD) Af Amer 183, Est GFR (MDRD) Non-Af 151, BUN/Creatinine Ratio 28.2 H, Glucose 109 H, Calcium 8.1 L, Total Bilirubin 0.20, AST 138 H, ALT 108 H, Alkaline Phosphatase 107, Total Protein 5.7 L, Albumin 1.9 L, Globulin 3.8, Albumin/Globulin Ratio 0.5 L Micro: Microbiology 10/15/20 18:20 Mucosa - Nose SARS-CoV-2 Antigen (Rapid) - Final Physical Exam Const alert General Appearance: cooperative Orientation / Consciousness: awake HEENT normocephalic GI soft to palpation, non-tender and non-distended Extremity General Extremity: edema bilateral (trace); Negative for calf tenderness Neuro deep tendon reflexes 2+ bilaterally Assessment & Plan (1) Postoperative anemia due to acute blood loss: PLAN: POD#4 s/p section for severe preeclampsia and suspected placental abruption. Acute blood loss anemia noted as well. Hgb stable and no symptoms of anemia. LFT's are elevated today. Will trend labs. S/p mag gtt. BP's trending up so will start Labetalol and continue to closely monitor. Pain well controlled. Baby doing well in special care nursery. She is tearful today and notes a history of adjustment disorder with depression and anxiety that was managed by her PCP. She was on Prozac and Zoloft in the past. Was on Zoloft prior to . Will restart Zoloft. Dispo: Routine care. (2) S/P section: (3) Pre-eclampsia, severe: QUALIFIERS: Trimester: third trimester Qualified Code(s): O14.13 - Severe pre-eclampsia, third trimester
[2020-10-19 12:23] LABS: Hemoglobin 7.6 g/dL (12.0-15.0); Mean Corp Hgb Conc 30.4 g/dL (32-36); Mean Corpuscular Hgb 27.6 pg (27.0-32.0); Mean Corpuscular Volume 90.9 fL (81-99); Mean Platelet Vol. 12.1 fl (6.2-12.0); Platelet Count 313 K/mm3 (150-450); RBC Distribution Width CV 16.1 % (11.6-14.6); RBC Distribution Width SD 53.1 fl (35.1-43.9); Red Blood Count 2.75 M/mm3 (4.2-5.4); White Blood Count 21.4 K/mm3 (4.4-11.0)
[2020-10-19 12:43] LABS: ALB/GLOB Ratio 0.5 RATIO (0.9-2.4); AST(SGOT) 198 U/L (15-37); Alanine Aminotransfer ALT/SGPT 157 U/L (13-56); Albumin, Serum 1.9 g/dL (3.2-5.0); Alkaline Phosphatase 106 U/L (45-117); Anion Gap 6 (5-15); BUN 16 mg/dL (7-18); BUN/Creat Ratio 30.5 RATIO (10-20); Calcium,Total 8.2 mg/dL (8.5-10.1); Chloride 109 mmol/L (98-107); Creatinine, Serum 0.52 mg/dL (0.55-1.02); EST Glomerular Filtration Rate 142 mL/min (>60); Est Glom Filt Rate - Afr Amer 172 mL/min (>60); Estimated Creatinine Clearance 115.03 ml/min; Globulin 3.9 g/dL (2.2-4.2); Glucose 116 mg/dL (74-106); Potassium 3.7 mmol/L (3.5-5.1); Protein, Total 5.8 g/dL (6.4-8.2); Sodium Level 141 mmol/L (136-145)
--- NOTE | 2020-10-19 13:19 | NURSING ---
Lab results reported to Dr. Francisco. Plan is to redraw CBC and CMP tonight at 1800 and tomorrow morning at 0600. Report results to Dr. Nolan jean.
--- NOTE | 2020-10-19 15:11 | NURSING ---
Dr. Francisco notified of patient's blood pressures. Order to increase Trandate dose to TID.
[2020-10-19 17:59] LABS: Hematocrit 26.2 % (37-47); Hemoglobin 7.9 g/dL (12.0-15.0); Mean Corp Hgb Conc 30.2 g/dL (32-36); Mean Corpuscular Hgb 27.4 pg (27.0-32.0); Mean Platelet Vol. 11.6 fl (6.2-12.0); POSITIVE COUNT YES; POSITIVE MORPHOLOGY YES; Platelet Count 318 K/mm3 (150-450); RBC Distribution Width CV 15.9 % (11.6-14.6); RBC Distribution Width SD 52.6 fl (35.1-43.9); Red Blood Count 2.88 M/mm3 (4.2-5.4); White Blood Count 20.6 K/mm3 (4.4-11.0)
[2020-10-19 18:01] LABS: Differential Indicated MANUAL DIFF
[2020-10-19 18:17] LABS: ALB/GLOB Ratio 0.5 RATIO (0.9-2.4); AST(SGOT) 218 U/L (15-37); Alanine Aminotransfer ALT/SGPT 195 U/L (13-56); Albumin, Serum 2.1 g/dL (3.2-5.0); Alkaline Phosphatase 113 U/L (45-117); Anion Gap 7 (5-15); BUN 15 mg/dL (7-18); BUN/Creat Ratio 27.4 RATIO (10-20); Calcium,Total 8.3 mg/dL (8.5-10.1); Chloride 106 mmol/L (98-107); Creatinine, Serum 0.55 mg/dL (0.55-1.02); EST Glomerular Filtration Rate 135 mL/min (>60); Est Glom Filt Rate - Afr Amer 164 mL/min (>60); Estimated Creatinine Clearance 108.76 ml/min; Glucose 156 mg/dL (74-106); Potassium 4.3 mmol/L (3.5-5.1); Protein, Total 6.1 g/dL (6.4-8.2); Sodium Level 139 mmol/L (136-145)
--- NOTE | 2020-10-19 18:29 | MDS.RN ---
Dr. Francisco notified of patient's labs. Plan for a RUQ ultrasound routine. Per Dr. Francisco, it is okay if ultrasound is done tomorrow if technologist infectious disease is not in house tonight.
--- NOTE | 2020-10-19 18:36 | NURSING ---
Ultrasound contacted. Voicemail left for ultrasound. Awaiting response .
--- NOTE | 2020-10-19 18:49 | NURSING ---
Call received from [facility] from ultrasound. Patient must be NPO for 8 hours before doing RUQ ultrasound. Plan is to keep patient NPO overnight - ultrasound for 0800 tomorrow morning.
[2020-10-19 19:00] LABS: Lymphocyte 22 % (19-41); Metamyelocyte 1 % (0-1); Monocyte 5 % (0-10); Myelocyte 1 % (0-0); Neutrophil-Band 2 % (0-5); Neutrophil-Segmented 69 % (47-70); Nucleated Red Bld Cells,Manual 1 % (0-5); Total Cells Counted 100 (MANUAL DIFF)
[2020-10-19 19:01] LABS: Hypochromasia 2+; Platelet Estimate ADEQUATE (ADEQ); Polychromasia RARE
[2020-10-19 19:02] LABS: Absolute Lymphocyte Count 4.53 X10^3/uL (0.83-4.51); Absolute Neutrophil Count 14.6 X10^3/uL (2.0-7.7)
[2020-10-19] MEDS: Sertraline 50 MG Tablet PO (20:11)
[2020-10-20] VITALS (9 sets, daily range): BP systolic 121–142; BP diastolic 59–80; PULSE 65–80; RESP 16–18; TEMP 36.1–37.1; O2SAT 97–98
[2020-10-20] MEDS: Ibuprofen 600 MG Tablet PO ×4 (01:13→19:36)
[2020-10-20] MEDS: oxyCODONE 5 MG Tablet PO (03:56)
[2020-10-20] MEDS: Acetaminophen 500 MG Tablet 1000 MG PO ×4 (04:35→22:16)
[2020-10-20 04:50] LABS: Hematocrit 24.9 % (37-47); Hemoglobin 7.6 g/dL (12.0-15.0); Mean Corp Hgb Conc 30.5 g/dL (32-36); Mean Corpuscular Hgb 27.8 pg (27.0-32.0); Mean Corpuscular Volume 91.2 fL (81-99); Mean Platelet Vol. 11.3 fl (6.2-12.0); POSITIVE COUNT YES; POSITIVE MORPHOLOGY YES; Platelet Count 309 K/mm3 (150-450); RBC Distribution Width CV 16.3 % (11.6-14.6); RBC Distribution Width SD 52.6 fl (35.1-43.9); Red Blood Count 2.73 M/mm3 (4.2-5.4); White Blood Count 19.3 K/mm3 (4.4-11.0)
[2020-10-20 04:55] LABS: Differential Indicated MANUAL DIFF
[2020-10-20 05:10] LABS: ALB/GLOB Ratio 0.5 RATIO (0.9-2.4); AST(SGOT) 158 U/L (15-37); Alanine Aminotransfer ALT/SGPT 189 U/L (13-56); Alkaline Phosphatase 104 U/L (45-117); Anion Gap 5 (5-15); BUN 16 mg/dL (7-18); Calcium,Total 8.1 mg/dL (8.5-10.1); Chloride 107 mmol/L (98-107); Creatinine, Serum 0.53 mg/dL (0.55-1.02); EST Glomerular Filtration Rate 139 mL/min (>60); Est Glom Filt Rate - Afr Amer 168 mL/min (>60); Estimated Creatinine Clearance 112.86 ml/min; Globulin 3.9 g/dL (2.2-4.2); Glucose 98 mg/dL (74-106); Potassium 4.4 mmol/L (3.5-5.1); Protein, Total 5.9 g/dL (6.4-8.2); Sodium Level 140 mmol/L (136-145)
[2020-10-20] MEDS: Labetalol 100 MG Tablet PO (05:57)
[2020-10-20 06:33] LABS: Total Cells Counted 100 (MANUAL DIFF)
[2020-10-20 06:46] LABS: Eosinophil 1 % (0-5); Lymphocyte 17 % (19-41); Metamyelocyte 1 % (0-1); Monocyte 6 % (0-10); Neutrophil-Band 5 % (0-5); Neutrophil-Segmented 70 % (47-70)
[2020-10-20 06:47] LABS: Absolute Lymphocyte Count 3.28 X10^3/uL (0.83-4.51); Absolute Neutrophil Count 14.5 X10^3/uL (2.0-7.7); Lymphocyte # 3.28 X10^3/ul (0.83-4.51); Neutrophil # 14.49 X10^3/uL (2.7-7.7)
[2020-10-20 06:48] LABS: Anisocytosis 1+; Microcytosis 1+; Platelet Estimate ADEQUATE (ADEQ); Polychromasia RARE
--- NOTE | 2020-10-20 07:00 | US_ITS ---
HISTORY: Elevated liver enzymes 5 days post . TECHNIQUE: Hernández scale and color Doppler imaging was performed of the right upper quadrant. Number of images including paperwork: 90. COMPARISON: None. FINDINGS: LIVER: 22.2 cm in length. Echogenic without focal lesion. No intrahepatic biliary ductal dilation. MAIN PORTAL VEIN: Patent with hepatopedal flow . CBD: 4-5 mm in diameter, nondilated. GALLBLADDER: 5 mm polyp in the distended gallbladder. 2-3 mm wall thickness, within normal limits. No pericholecystic fluid. Negative sonographic Marlow sign reported. PANCREAS: Visualized proximal portion unremarkable. RIGHT KIDNEY: 13.6 cm in length with a cortical thickness of 1.6 cm. No hydronephrosis or gross renal mass. US/Abdomen Limited IMPRESSION: Hepatomegaly with hepatic steatosis. 5 mm gallbladder polyp. Gallbladder distention. at 0830 Reported and signed by: Laura Saunders MD Electronically Signed: Laura Saunders MD at 8:29 EDT Tel , Service support ,
--- NOTE | 2020-10-20 09:05 | PN.OBGYN_ITS ---
Subjective Subjective Patient doing well this morning. She still has a dull headache. She is drinking caffeine and hydrating today. Pain is well controlled. Tolerating a diet without nausea or vomiting. Ambulating voiding without difficulty. Lochia normal. No leg pain. No vision changes or right upper quadrant pain. Objective Data Objective Data Vital Signs: Vital Signs Temp Pulse Resp BP Pulse Ox 98.8 F 80 16 135/66 H 97 10/20/20 07:34 10/20/20 07:34 10/20/20 07:34 10/20/20 07:34 10/20/20 07:34 Oxygen Delivery Method Room Air Weight: 294 lb 15.656 oz Body Mass Index (BMI) 55.7 Lab / Micro Data Result Diagrams: 10/20/20 04:40 10/20/20 04:40 Labs: Laboratory Results - last 24 hr 10/19/20 12:15: WBC 21.4 H, RBC 2.75 L, Hgb 7.6 L, Hct 25.0 L, MCV 90.9 D, MCH 27.6, MCHC 30.4 L D, RDW Std Deviation 53.1 H, RDW Coeff of Belkis 16.1 H, Plt Count 313, MPV 12.1 H 10/19/20 12:15: Sodium 141, Potassium 3.7, Chloride 109 H, Carbon Dioxide 26.0, Anion Gap 6, BUN 16, Creatinine 0.52 L, Estim Creat Clear Calc 115.03, Est GFR (MDRD) Af Amer 172, Est GFR (MDRD) Non-Af 142, BUN/Creatinine Ratio 30.5 H, Glucose 116 H, Calcium 8.2 L, Total Bilirubin 0.20, AST 198 H, ALT 157 H, Alkaline Phosphatase 106, Total Protein 5.8 L, Albumin 1.9 L, Globulin 3.9, Albumin/Globulin Ratio 0.5 L 10/19/20 17:55: WBC 20.6 H, RBC 2.88 L, Hgb 7.9 L, Hct 26.2 L, MCV 91.0, MCH 27.4, MCHC 30.2 L, RDW Std Deviation 52.6 H, RDW Coeff of Belkis 15.9 H, Plt Count 318, MPV 11.6, Neut % (Auto) Not Reportable, Absolute Neuts (auto) 14.6 H, Absolute Lymphs (auto) 4.53 H, Total Counted 100, Neutrophils % (Manual) 69, Band Neutrophils % 2, Lymphocytes % (Manual) 22, Monocytes % (Manual) 5, Metamyelocytes % 1, Myelocytes % 1 H, Nucleated RBCs/100 WBC 1, Diff Path Review May foll, Platelet Estimate ADEQUATE, Polychromasia RARE, Hypochromasia 2+ 10/19/20 17:55: Sodium 139, Potassium 4.3, Chloride 106, Carbon Dioxide 26.0, Anion Gap 7, BUN 15, Creatinine 0.55, Estim Creat Clear Calc 108.76, Est GFR (MDRD) Af Amer 164, Est GFR (MDRD) Non-Af 135, BUN/Creatinine Ratio 27.4 H, Glucose 156 H, Calcium 8.3 L, Total Bilirubin 0.10 L, AST 218 H, ALT 195 H, Alkaline Phosphatase 113, Total Protein 6.1 L, Albumin 2.1 L, Globulin 4.0, Albumin/Globulin Ratio 0.5 L 10/20/20 04:40: WBC 19.3 H, RBC 2.73 L, Hgb 7.6 L, Hct 24.9 L, MCV 91.2, MCH 27.8, MCHC 30.5 L, RDW Std Deviation 52.6 H, RDW Coeff of Belkis 16.3 H, Plt Count 309, MPV 11.3, Neut % (Auto) Not Reportable, Absolute Neuts (auto) 14.5 H, Absolute Lymphs (auto) 3.28, Total Counted 100, Neutrophils % (Manual) 70, Band Neutrophils % 5, Lymphocytes % (Manual) 17 L, Monocytes % (Manual) 6, Eosinophils % (Manual) 1, Metamyelocytes % 1, Diff Path Review May foll, Platelet Estimate ADEQUATE, Polychromasia RARE, Anisocytosis 1+, Microcytosis 1+ 10/20/20 04:40: Sodium 140, Potassium 4.4, Chloride 107, Carbon Dioxide 28.0, Anion Gap 5, BUN 16, Creatinine 0.53 L, Estim Creat Clear Calc 112.86, Est GFR (MDRD) Af Amer 168, Est GFR (MDRD) Non-Af 139, BUN/Creatinine Ratio 30.0 H, Glucose 98, Calcium 8.1 L, Total Bilirubin 0.20, AST 158 H, ALT 189 H, Alkaline Phosphatase 104, Total Protein 5.9 L, Albumin 2.0 L, Globulin 3.9, Alb umin/Globulin Ratio 0.5 L Micro: Microbiology 10/15/20 18:20 Mucosa - Nose SARS-CoV-2 Antigen (Rapid) - Final Radiography Diagnostic Testing: Radiology Impression Abdomen Ultrasound 10/20/20 07:00 IMPRESSION: Hepatomegaly with hepatic steatosis. 5 mm gallbladder polyp. Gallbladder distention. at 0830 Reported and signed by: Laura Saunders MD Electronically Signed: Laura Saunders MD at 8:29 EDT Tel , Service support , Physical Exam Const alert General Appearance: comfortable HEENT normocephalic GI soft to palpation, non-tender and non-distended Extremity no calf tenderness Assessment & Plan (1) Postoperative anemia due to acute blood loss: PLAN: Patient is having no symptoms of anemia. Received 1 dose of IV iron. Will need to go home with oral iron. (2) S/P section: PLAN: Doing well post op. Pain well controlled. Pumping. Baby in special care nursery. (3) Pre-eclampsia, severe: QUALIFIERS: Trimester: third trimester Qualified Code(s): O14.13 - Severe pre-eclampsia, third trimester PLAN: RUQ US reviewed. Cont to trend LFT's, now trending down. Will increase Labetalol to 200 mg TID. LANGSTON is mild and likely multifactorial. She is s/p mag gtt. Discussed if LANGSTON is severe may need CT head. (4) Elevated LFTs: COMMENT: Cont to trend
[2020-10-20] MEDS: Sertraline 50 MG Tablet PO (10:06)
[2020-10-20] MEDS: Enoxaparin 40 MG/0.4 ML Syringe SC ×2 (10:06→22:16)
[2020-10-20] MEDS: Labetalol 200 MG Tablet PO ×2 (13:28→22:16)
[2020-10-20 17:55] LABS: Hematocrit 25.8 % (37-47); Hemoglobin 7.8 g/dL (12.0-15.0); Mean Corp Hgb Conc 30.2 g/dL (32-36); Mean Corpuscular Volume 92.5 fL (81-99); Mean Platelet Vol. 12.1 fl (6.2-12.0); Platelet Count 334 K/mm3 (150-450); RBC Distribution Width CV 16.6 % (11.6-14.6); RBC Distribution Width SD 53.5 fl (35.1-43.9); Red Blood Count 2.79 M/mm3 (4.2-5.4); White Blood Count 18.3 K/mm3 (4.4-11.0)
[2020-10-20 18:15] LABS: ALB/GLOB Ratio 0.5 RATIO (0.9-2.4); AST(SGOT) 111 U/L (15-37); Alanine Aminotransfer ALT/SGPT 181 U/L (13-56); Albumin, Serum 2.1 g/dL (3.2-5.0); Alkaline Phosphatase 114 U/L (45-117); Anion Gap 5 (5-15); BUN 19 mg/dL (7-18); BUN/Creat Ratio 34.5 RATIO (10-20); Calcium,Total 8.5 mg/dL (8.5-10.1); Chloride 107 mmol/L (98-107); Creatinine, Serum 0.55 mg/dL (0.55-1.02); EST Glomerular Filtration Rate 134 mL/min (>60); Est Glom Filt Rate - Afr Amer 163 mL/min (>60); Estimated Creatinine Clearance 108.76 ml/min; Glucose 101 mg/dL (74-106); Potassium 4.4 mmol/L (3.5-5.1); Protein, Total 6.1 g/dL (6.4-8.2); Sodium Level 140 mmol/L (136-145)
[2020-10-21] VITALS (8 sets, daily range): BP systolic 117–133; BP diastolic 57–65; PULSE 67–81; RESP 18; TEMP 36.6–36.8
[2020-10-21] MEDS: Ibuprofen 600 MG Tablet PO ×2 (02:35→10:40)
[2020-10-21] MEDS: Acetaminophen 500 MG Tablet 1000 MG PO ×2 (04:45→10:59)
[2020-10-21] MEDS: Labetalol 200 MG Tablet PO (06:37)
[2020-10-21 07:06] LABS: Hematocrit 27.1 % (37-47); Mean Corp Hgb Conc 29.5 g/dL (32-36); Mean Corpuscular Hgb 27.4 pg (27.0-32.0); Mean Corpuscular Volume 92.8 fL (81-99); Platelet Count 337 K/mm3 (150-450); RBC Distribution Width CV 17.9 % (11.6-14.6); RBC Distribution Width SD 54.6 fl (35.1-43.9); Red Blood Count 2.92 M/mm3 (4.2-5.4); White Blood Count 16.5 K/mm3 (4.4-11.0)
[2020-10-21 07:33] LABS: ALB/GLOB Ratio 0.5 RATIO (0.9-2.4); AST(SGOT) 79 U/L (15-37); Alanine Aminotransfer ALT/SGPT 160 U/L (13-56); Albumin, Serum 2.2 g/dL (3.2-5.0); Alkaline Phosphatase 126 U/L (45-117); Anion Gap 6 (5-15); BUN 17 mg/dL (7-18); BUN/Creat Ratio 30.2 RATIO (10-20); Calcium,Total 8.3 mg/dL (8.5-10.1); Chloride 107 mmol/L (98-107); Creatinine, Serum 0.56 mg/dL (0.55-1.02); EST Glomerular Filtration Rate 131 mL/min (>60); Est Glom Filt Rate - Afr Amer 159 mL/min (>60); Estimated Creatinine Clearance 106.81 ml/min; Globulin 4.2 g/dL (2.2-4.2); Glucose 80 mg/dL (74-106); Potassium 4.2 mmol/L (3.5-5.1); Protein, Total 6.4 g/dL (6.4-8.2); Sodium Level 139 mmol/L (136-145)
--- NOTE | 2020-10-21 08:29 | PN.OBGYN_ITS ---
Subjective Subjective POD #6, remained due to severe preeclampsia and trending up LFTs. Resting comfortably in bed. Doing well per patient and nursing staff. Ambulating and taking PO without difficulty. Voiding and passing flatus, BM x2. Pain controlled. and pumping, services for assistance as needed. Denies headache, visual changes, chest pain, shortness of breath, leg pain or increased bleeding. Lochia normal. States she is feeling much better today. Objective Data Objective Data Vital Signs: Vital Signs Temp Pulse Resp BP Pulse Ox 97.8 F 81 18 133/64 H 98 10/21/20 02:29 10/21/20 06:36 10/21/20 02:29 10/21/20 06:36 10/20/20 16:40 Oxygen Delivery Method Room Air Weight: 294 lb 15.656 oz Body Mass Index (BMI) 55.7 Lab / Micro Data Result Diagrams: 10/21/20 06:52 10/21/20 06:52 Labs: Laboratory Results - last 24 hr 10/20/20 17:43: WBC 18.3 H, RBC 2.79 L, Hgb 7.8 L, Hct 25.8 L, MCV 92.5, MCH 28.0, MCHC 30.2 L, RDW Std Deviation 53.5 H, RDW Coeff of Belkis 16.6 H, Plt Count 334, MPV 12.1 H 10/20/20 17:43: Sodium 140, Potassium 4.4, Chloride 107, Carbon Dioxide 28.0, Anion Gap 5, BUN 19 H, Creatinine 0.55, Estim Creat Clear Calc 108.76, Est GFR (MDRD) Af Amer 163, Est GFR (MDRD) Non-Af 134, BUN/Creatinine Ratio 34.5 H, Glucose 101, Calcium 8.5, Total Bilirubin 0.20, AST 111 H, ALT 181 H, Alkaline Phosphatase 114, Total Protein 6.1 L, Albumin 2.1 L, Globulin 4.0, Albumin/Globulin Ratio 0.5 L 10/21/20 06:52: WBC 16.5 H, RBC 2.92 L, Hgb 8.0 L, Hct 27.1 L, MCV 92.8, MCH 27.4, MCHC 29.5 L, RDW Std Deviation 54.6 H, RDW Coeff of Belkis 17.9 H, Plt Count 337, MPV 12.0 10/21/20 06:52: Sodium 139, Potassium 4.2, Chloride 107, Carbon Dioxide 26.0, Anion Gap 6, BUN 17, Creatinine 0.56, Estim Creat Clear Calc 106.81, Est GFR (MDRD) Af Amer 159, Est GFR (MDRD) Non-Af 131, BUN/Creatinine Ratio 30.2 H, Glucose 80, Calcium 8.3 L, Total Bilirubin 0.30, AST 79 H, ALT 160 H, Alkaline Phosphatase 126 H, Total Protein 6.4, Albumin 2.2 L, Globulin 4.2, Albumin/Globulin Ratio 0.5 L Micro: Microbiology 10/15/20 18:20 Mucosa - Nose SARS-CoV-2 Antigen (Rapid) - Final Radiography Diagnostic Testing: Radiology Impression Abdomen Ultrasound 10/20/20 07:00 IMPRESSION: Hepatomegaly with hepatic steatosis. 5 mm gallbladder polyp. Gallbladder distention. at 0830 Reported and signed by: Laura Saunders MD Electronically Signed: Laura Saunders MD at 8:29 EDT Tel , Service support , ROS Constitutional Constitutional: Reports systems reviewed and no addt'l complaints, except as documented; Denies headache(s) Eyes Eyes: Denies acute decrease in peripheral vision, blurry vision or change in vision ENT HEENT: Reports systems reviewed and no addt'l complaints, except as documented Cardiovascular Cardiovascular: Denies chest pain or dizziness Respiratory/Chest Respiratory/Chest: Denies cough, dyspnea, dyspnea on exertion, shortness of breath at rest or shortness of breath with exertion Gastrointestinal Gastrointestinal: Denies abdominal pain, diarrhea, nausea or vomiting Genitourinary Genitourinary: Denies abdominal discomfort Musculoskeletal Musculoskeletal: Denies limited range of motion Integumentary Integumentary: Reports systems reviewed and no addt'l complaints, except as documented Neurologic Neurologic: Reports systems reviewed and no addt'l complaints, except as docu mented Psychiatric Psychiatric: Reports systems reviewed and no addt'l complaints, except as documented Endocrine Endocrinology: Reports systems reviewed and no addt'l complaints, except as documented Hematologic/Lymphatic Hematologic/Lymphatic: Reports systems reviewed and no addt'l complaints, except as documented Allergic/Immunologic Allergic/Immunologic: Reports systems reviewed and no addt'l complaints, except as documented Physical Exam Const alert and oriented x3 General Appearance: cooperative Orientation / Consciousness: awake, oriented to person, oriented to place and oriented to time Exam Limitations: no limitations HEENT normocephalic Head and Scalp: normal to inspection, normocephalic and atraumatic Face and Sinus: normal facial exam Eyes General Eye: normal appearance of both eyes Neck full ROM Chest Chest: symmetrical chest wall rise Resp normal respiratory effort and normal air movement Auscultation: clear to auscultation bilaterally Cardio regular rate, regular rhythm, S1 normal heart sound, S2 normal heart sound, no murmurs, no rub, no gallops and no clicks GI normal to inspection, nondistended, normoactive bowel sounds and non-tender GI Narrative: Fundus firm, 4 below U. Dressing dry and intact. Appropriately tender Bladder / Kidney Exam: no CVA tenderness Back/Spine normal ROM Extremity normal to inspection and full ROM General Extremity: edema bilateral (+1, Homans negative bilaterally) Skin no rashes or lesions noted Neuro oriented x3, CN's II-XII intact bilaterally and moves all extremities Sensorium / Orientation: awake, alert and oriented to person Motor Exam: clonus absent Deep Tendon Reflexes: Rt Patellar (L4): 2+ and Lt Patellar (L4): 2+ Assessment & Plan (1) Elevated LFTs: COMMENT: Cont to trend (2) hemorrhage: (3) Postoperative anemia due to acute blood loss: (4) S/P section: (5) BMI 50.0-59.9, adult: (6) Pre-eclampsia, severe: QUALIFIERS: Trimester: third trimester Qualified Code(s): O14.13 - Severe pre-eclampsia, third trimester PLAN: 1. Hemoglobin stable, 8.0 increased from yesterday. Will discharge home on ferrous sulfate 325 mg p.o. twice daily. 2. Blood pressure stable, will discharge with labetalol 200 mg p.o. 3 times daily. Instructed patient to check blood pressure and to call if increasing or severe range 160/110. Will have blood pressure check in 3 days. 3. LFTs trending down, will follow up outpatient 4. Pain management, will send oxycodone 5. We will follow up incision check this week and 6-week visit 6. Breast-feeding and pumping, will follow up with services if needed 7. Dr. Ivory consulted and agrees with plan of care.
--- NOTE | 2020-10-21 08:39 | DS.PCM_ITS ---
Providers Date of Admission: 10/15/20 Primary Care Physician: Dr. Huyen Black DO Reason For Visit: C SECTION Diagnosis Discharge Diagnosis (1) Elevated LFTs: Status: Acute Code(s): R79.89 - Other specified abnormal findings of blood chemistry (2) hemorrhage: Status: Acute Code(s): O72.1 - Other immediate hemorrhage (3) Postoperative anemia due to acute blood loss: Status: Acute Code(s): D62 - Acute posthemorrhagic anemia (4) S/P section: Status: Acute Code(s): Z98.891 - History of uterine scar from previous surgery (5) BMI 50.0-59.9, adult: Status: Acute Code(s): Z68.43 - Body mass index [BMI] 50.0-59.9, adult (6) Pre-eclampsia, severe: Status: Acute Code(s): O14.10 - Severe pre-eclampsia, unspecified trimester Qualifiers: Trimester: third trimester Qualified Code(s): O14.13 - Severe pre- eclampsia, third trimester Medications at Discharge Home Medications NK 10/14/20 acetaminophen 1,000 mg PO Q6H #0 tab 10/21/20 ibuprofen 600 mg PO Q6 #30 tab 10/21/20 labetalol 200 mg PO TID #90 tab 10/21/20 oxycodone 5 - 10 mg PO Q4H PRN PRN #0 tab 10/21/20 sennosides-docusate sodium [Stool Softener-Stimulant Laxat] 1 tab-cap PO DAILY #30 tab 10/21/20 sertraline 50 mg PO DAILY #0 tab 10/21/20 Hospital Course Summary of Care Provided Hospital Course: Presented on 10/15/20 from office due to vaginal bleeding. Decision made for cesrean section due to possible abruption. LTCS with bilateral tubal ligation sterilization. Postoperative severe preeclampsia and acute blood loss anemia. IV iron. LFTs elevated and fatty liver on US. Discharge home one POD #6. Weight / BMI Weight Weight: 294 lb 15.656 oz Body Mass Index (BMI) 55.7 ABG / Lab / Microbiology Data Result Diagrams: 10/21/20 06:52 10/21/20 06:52 Laboratory: Laboratory Results - last 24 hr 10/20/20 17:43: WBC 18.3 H, RBC 2.79 L, Hgb 7.8 L, Hct 25.8 L, MCV 92.5, MCH 28.0, MCHC 30.2 L, RDW Std Deviation 53.5 H, RDW Coeff of Belkis 16.6 H, Plt Count 334, MPV 12.1 H 10/20/20 17:43: Sodium 140, Potassium 4.4, Chloride 107, Carbon Dioxide 28.0, Anion Gap 5, BUN 19 H, Creatinine 0.55, Estim Creat Clear Calc 108.76, Est GFR (MDRD) Af Amer 163, Est GFR (MDRD) Non-Af 134, BUN/Creatinine Ratio 34.5 H, Glucose 101, Calcium 8.5, Total Bilirubin 0.20, AST 111 H, ALT 181 H, Alkaline Phosphatase 114, Total Protein 6.1 L, Albumin 2.1 L, Globulin 4.0, Albumin/Globulin Ratio 0.5 L 10/21/20 06:52: WBC 16.5 H, RBC 2.92 L, Hgb 8.0 L, Hct 27.1 L, MCV 92.8, MCH 27.4, MCHC 29.5 L, RDW Std Deviation 54.6 H, RDW Coeff of Belkis 17.9 H, Plt Count 337, MPV 12.0 10/21/20 06:52: Sodium 139, Potassium 4.2, Chloride 107, Carbon Dioxide 26.0, Anion Gap 6, BUN 17, Creatinine 0.56, Estim Creat Clear Calc 106.81, Est GFR (MDRD) Af Amer 159, Est GFR (MDRD) Non-Af 131, BUN/Creatinine Ratio 30.2 H, Glucose 80, Calcium 8.3 L, Total Bilirubin 0.30, AST 79 H, ALT 160 H, Alkaline Phosphatase 126 H, Total Protein 6.4, Albumin 2.2 L, Globulin 4.2, Albumin/Globulin Ratio 0.5 L Microbiology: Microbiology 10/15/20 18:20 Mucosa - Nose SARS-CoV-2 Antigen (Rapid) - Final D/C Instructions Discharge Diet: No restrictions Discharge Activity: May Not Drive and May Shower May resume sexual activity in: 4-6 weeks Weight Bearing Status: Full weight bearing Lifting Restricted to (Lbs): 20 Call your doctor if your incision/area has: Continuous Slow Oozing, Sudden Increased Bleeding, Increased Pain/ Swelling, Increased Redness, Foul Smelling Discharge and Swelling at the incision site Call your doctor if you observe: Fever of 101 or Higher, Inability to urinate, Inability to have a bowel movement, Using more than 1 pad per hour, Shortness of breath, Dizziness, Fainting spells, Chest pain, Increased palpitations (irregular heartbeat), Calf discomfort and Uncontrolled pain Suture Line Care: Avoid Pulling/Pushing Remove Dressing in: 1 week Cleanse incision/area with: Keep Dressing Clean & Dry Additional Instructions: Follow up 3 days for incision check in office and blood pressure check. Please Follow Up With: The counseling center Meaningful Use Info Meaningful Use Diagnoses (Choose all that apply): None applicable Discharge Plan Admission Admit Date/Time: 10/15/20 18:20 Primary Reason for Your Visit: Section Attending Provider: Jake Funes Primary Care Provider: Huyen Black Instructions Forms: Information Patient Instructions: Anemia, Controlling High Blood Pressure, Understanding Preeclampsia, After a , : Caring for Yourself Additional Instructions / Restrictions: Check blood pressure prior to taking blood pressure medication. If blood pre ssure increasing to call office for further management. If 160/110 to call office or go to Emergency room. Discharge Orders/Prescriptions Prescriptions: New labetalol 200 mg Tablet 200 mg PO TID Qty: 90 RF: 0 sennosides-docusate sodium [Stool Softener-Stimulant Laxat] 8.6-50 mg Tablet 1 tab-cap PO DAILY Qty: 30 RF: 0 acetaminophen 500 mg Tablet 1,000 mg PO Q6H Qty: 0 RF: 0 ibuprofen 600 mg Tablet 600 mg PO Q6 Qty: 30 RF: 0 sertraline 50 mg Tablet 50 mg PO DAILY Qty: 0 RF: 0 oxycodone 5 mg Tablet 5 - 10 mg PO Q4H PRN PRN (Reason: Pain Score 4-10) Qty: 0 RF: 0 No Action NK RF: 0 Referrals / Follow Up: Huyen Black DO [Primary Care Provider] - Disposition Disposition (needs filled in before D/C Order can be placed): Home, Self Care
[2020-10-21] MEDS: Sertraline 50 MG Tablet PO (10:39)
[2020-10-21] MEDS: Enoxaparin 40 MG/0.4 ML Syringe SC (10:39)
[2020-10-21] MEDS: Senna/Docusate Sodium 1 Tablet PO (10:40)
--- NOTE | 2020-10-21 12:28 | CASEMGMT ---
Social Work Labor and Delivery [facility] Me [facility] referral submitted via the [facility]'s secure web based referral system. Patient/mother of baby discharged as a patient today. Baby remains in the SCN at this time. Social work to follow while family in the [facility]. [facility] services will follow in the community. Mental health follow up also made for this patient as well. Refer to prior social work documentation for further details of social work interventions. No other services requested or indicated. -SHAILA Corea, DISTRICT ADMINISTRATIVE ASSISTANT
[2020-10-21 13:02] LABS: Pathologist Review Reviewed
[2020-10-21 13:03] LABS: Pathologist Review Reviewed
--- NOTE | 2020-12-02 13:48 | CASEMGMT ---
Social Work Labor and Delivery Unit Noted in patient/mother of baby's record that urine confirmation drug screening for results from 10.14.2020 positive for both amphetamines and methamphetamines. Noted in the medical record that baby's meconium is negative. Call to [facility] ([facility]) and left message for rollway worker Gabby Goodwin ([phone], extension [phone]) to call this technical report writer back for results, which is in direct relation to reason for initial referral to said agency. -SHAILA Corea, UX SPECIALIST
== END 2020-10-21 11:00 | disposition home or self-care (01) | DRG 539 ==
LOC: WPOUT 18:36 → WP 18:36
PROVIDERS: Advanced Practice Midwife; Obstetrics & Gynecology; Admitting Provider Obstetrics & Gynecology; PCP Internal Medicine; Visit Provider Obstetrics & Gynecology
DX: O34.212 Maternal care for vertical scar from previous cesarean delivery (principal); O45.93 Premature separation of placenta, unspecified, third trimester; O14.14 Severe pre-eclampsia complicating childbirth; Z37.0 Single live birth; Z30.2 Encounter for sterilization; Z3A.34 34 weeks gestation of pregnancy; Z87.891 Personal history of nicotine dependence; O47.03 False labor before 37 completed weeks of gestation, third trimester; O13.3 Gestational [pregnancy-induced] hypertension without significant proteinuria, third trimester; O99.213 Obesity complicating pregnancy, third trimester; E66.9 Obesity, unspecified
CPT/HCPCS: 36415; 59025; 59050; 76705; 76815; 80053; 80307; 81001; 82565; 82570; 82962; 83735; 84156; 84450; 84460; 84550; 85025; 85027; 85384; 85610; 85730; 86780; 86850; 86900; 86901; 87086; 87088; 87426; 88302; 99218; J1756; J7040; J7120; A4216; G0378; J0702; J2405